=== PATIENT | male | born 1950 | race Caucasian/White ===

== ENCOUNTER → 2017-05-02 | Outpatient (CLI) | payer MEDICARE ==
--- NOTE | 2017-05-02 07:55 | US ---
EXAMINATION TYPE: US liver DATE OF EXAM: 05/02/2017 COMPARISON: NONE CLINICAL HISTORY: R74.8 abnormal levels Of Serum Enzymes. Elevated liver enzymes. No symptoms per pat ient EXAM MEASUREMENTS: Liver Length: 20.9 cm Gallbladder Wall: 0.2 cm CBD: 0.7 cm Right Kidney: 11.4 x 6.4 x 6.4 cm Pancreas: Obscured by bowel gas Liver: Enlarged, coarse echotexture. Attenuating. Hypoechoic area visualized adjacent to gallbladder measuring 0.8 x 0.8 x 0.8 cm Gallbladder: No shadowing stones or sludge seen Evidence for sonographic Matthews's sign: No CBD: Measuring upper limits of normal, distal portion obscured by bowel gas Right Kidney: No hydronephrosis or masses seen Pancreas is suboptimally evaluated on images saved due to shadowing from overlying bowel gas. Visuali zed liver is heterogeneously hyperechoic. Technologist eduardo vague subcentimeter hypoechoic area near gallbladder fossa. I suspect diffuse fatty infiltration with focal fatty sparing. IMPRESSION: Heterogeneous hyperechoic appearance of liver favors diffuse fatty infiltration. Underlyi ng hepatocellular disease is not excluded. Imaging guided random biopsy for tissue analysis can be pe rformed if desired.
== END | disposition home or self-care (01) ==
LOC: RADUSWWP 07:16
PROVIDERS: ATTEND Family Medicine
DX: R74.8 Abnormal levels of other serum enzymes (principal)
CPT/HCPCS: 76705

== ENCOUNTER → 2017-07-26 | Outpatient (CLI) | payer MEDICARE ==
--- NOTE | 2017-07-27 12:56 | P.STRESS ---
- Stress Test Note Stress Test Results/Findings: Exam Performed: stress echo exercise Exam Date: 07/26/17 Reason for Exam: CHEST PAIN Height: 6 ft 1 in Weight: 113.398 kg Protocol: JOHN Stage: 2 Duration of Exercise: 5:00 Resting Heart Rate: 68 Resting Blood Pressure: 136/77 Maximum Achieved Heart Rate: 144 Maximum Achieved Blood Pressure: 206/42 85% PMHR: 132 100% PMHR: 155 METS: 6.8 Technologist Comment: Stress Test Results/Findings: This is a 67-year-old gentleman with history of hypercholesterolemia and smoking history, being evaluated for symptoms of chest pain. Stress data: Baseline EKG showed sinus rhythm with normal NH and 20, QRS duration. Blood pressure at rest is 136/77 with a pulse rate of 68. Patient walked on the John protocol for 5 minutes achieving a maximum heart rate of 144 with a blood pressure of 206/42. Patient did not experience any chest pain. Echo data: Baseline echo images show normal wall motion and thickening. Exercise echo images showed augmentation of the wall motion and thickening in all segments. Final impression: #1. Negative stress test #2. Negative stress echo.
--- NOTE | 2017-08-01 14:14 | ECHOS ---
Stress Test Results/Findings: Exam Performed: stress echo exercise Exam Date: 07/26/17 Reason for Exam: CHEST PAIN Height: 6 ft 1 in Weight: 113.398 kg Protocol: JOHN Stage: 2 Duration of Exercise: 5:00 Resting Heart Rate: 68 Resting Blood Pressure: 136/77 Maximum Achieved Heart Rate: 144 Maximum Achieved Blood Pressure: 206/42 85% PMHR: 132 100% PMHR: 155 METS: 6.8 Technologist Comment: Stress Test Results/Findings: This is a 67-year-old gentleman with history of hypercholesterolemia and smoking history, being evaluated for symptoms of chest pain. Stress data: Baseline EKG showed sinus rhythm with normal HI and 20, QRS duration. Blood pressure at rest is 136/77 with a pulse rate of 68. Patient walked on the John protocol for 5 minutes achieving a maximum heart rate of 144 with a blood pressure of 206/42. Patient did not experience any chest pain. Echo data: Baseline echo images show normal wall motion and thickening. Exercise echo images showed augmentation of the wall motion and thickening in all segments. Final impression: #1. Negative stress test #2. Negative stress echo. KENTOND
== END | disposition home or self-care (01) ==
LOC: RADNMMAIN 09:44
PROVIDERS: ATTEND Family Medicine
DX: R07.1 Chest pain on breathing (principal)
CPT/HCPCS: 93351

== ENCOUNTER → 2017-08-03 | Outpatient (CLI) | payer MEDICARE ==
--- NOTE | 2017-07-26 13:18 | P.STRESS ---
- Stress Test Note Stress Test Results/Findings: Exam Performed: Exam Date: Reason for Exam: Height: Weight: Protocol: Stage: Duration of Exercise: Resting Heart Rate: Resting Blood Pressure: Maximum Achieved Heart Rate: Maximum Achieved Blood Pressure: 85% PMHR: 100% PMHR: METS: Technologist Comment: Stress Test Results/Findings: This is a 67-year-old gentleman with history of hypercholesterolemia and smoking being evaluated for chest pains. Stress data: Baseline EKG showed sinus rhythm with normal HI interval and QRS duration. Blood pressure at rest is 136/77 with pulse rate of 68.. Patient walked on the Antolin protocol for about 5 minutes achieving a maximal to 144 with blood pressure 206/42. EKGs taken during after the x-ray did not reveal any significant changes from the baseline. Echo data: Baseline echo images show normal wall motion and thickening. Exercise echo images showed augmentation of wall motion and thickening in all segments. Final impression: #1. Negative stress test #2. Negative stress echo. #3. Patient did not express any chest pain before. #5. No arrhythmias detected.
--- NOTE | 2017-08-03 14:55 | US ---
EXAMINATION TYPE: US duplex aorta DATE OF EXAM: 08/03/2017 COMPARISON: Liver ultrasound May 02, 2017 CLINICAL HISTORY: Z13.6 Screening for cardiovascular disorder. EXAM MEASUREMENTS: Abdominal Aorta: Proximal: 1.8 x 1.5 cm Mid: 2.2 x 1.4 cm Distal: 1.9 x 1.4 cm Bifurcation: 1.3 cm 1.4 cm Difficult exam due to large amounts of bowel gas. Suboptimal study without greater than 3 cm aneurysmal change seen. Adjacent heterogeneous hyperechoic appearance of liver is redemonstrated. IMPRESSION: Suboptimal study without convincing ultrasound evidence for abdominal aortic aneurysm.
== END | disposition home or self-care (01) ==
LOC: RADUSWWP 14:07
PROVIDERS: ATTEND Family Medicine
DX: Z13.6 Encounter for screening for cardiovascular disorders (principal)
CPT/HCPCS: 93979

== ENCOUNTER 2023-10-19 10:07 | Day surgery (SDC) | payer MEDICARE ==
[2023-10-14 10:48] VITALS: BMI 34.5
[~2023-10-19 10:07] MED LIST: HYDROmorphone 0.5 MG/0.5 ML SYRINGE IVP PRN; LIDOCAINE 1% (10MG/ML) FOR IV START INTRADERMA PRN; MIDAZOLAM 2 MG/2 ML VIAL IV PRN; fentaNYL (PF) 50 MCG/ML 2 ML AMP IVP PRN
[2023-10-19] MEDS: IV FLUID CONTINUATION 1,000 ML IV ONE (10:23)
[2023-10-19 10:33] VITALS: RESP 18
[2023-10-19] MEDS: OXYMETAZOLINE 0.05% NASL SPRAY 1 SPRAY BOTTLE EA NOSTRIL PRN (10:38)
[2023-10-19] MEDS: DEXAMETHASONE SOD PHOSPHATE 4 MG/ML 1 ML VIAL IV ONE (10:49)
[2023-10-19] MEDS: ONDANSETRON 4 MG/2 ML VIAL IVP ONE (10:56)
[2023-10-19] MEDS: FAMOTIDINE 20 MG/2 ML VIAL IV PRN (10:57)
[2023-10-19] MEDS: LACTATED RINGERS 1,000 ML IV SCH (11:03)
[2023-10-19 11:09] LABS: Glucose,Whole Blood 107 mg/dL (70-110)
[2023-10-19] MEDS ORDERED: PROPOFOL 10 MG/ML 20 ML VIAL IV ONE (11:09)
[2023-10-19] MEDS ORDERED: SUCCINYLCHOLINE CHLORIDE 200 MG/10 ML VIAL IV ONE (11:09)
[2023-10-19] MEDS ORDERED: fentaNYL (PF) 50 MCG/ML 2 ML AMP ONE (11:09)
[2023-10-19] MEDS: ceFAZolin 3 GM in SODIUM CHLORIDE 0.9% 100 ML IVPB PRN (11:09)
[2023-10-19] MEDS ORDERED: ROCURONIUM 10 MG/ML (5 ML VIAL) IV ONE (11:09)
[2023-10-19] MEDS ORDERED: PHENYLEPHRINE 10 MG/ML VIAL ONE (11:09)
[2023-10-19] MEDS ORDERED: MIDAZOLAM 2 MG/2 ML VIAL ONE (11:09)
[2023-10-19] MEDS ORDERED: LIDOCAINE 1% INJ 10MG/ML (20 ML MDV) ONE (11:09)
[2023-10-19] MEDS: LIDOCAINE 1%-EPI 1:100,000 20 ML VIAL SUBMUCOSAL ONE ×3 (11:24→11:28)
[2023-10-19] MEDS: BACITRACIN ZINC 500 UNIT/GM OINT 28.4 GM TUBE TOPICAL ONE ×3 (11:25→12:02)
--- NOTE | 2023-10-19 12:13 | P.OP ---
Date of Procedure: 10/19/23 Preoperative Diagnosis: deviated nasal septum Inferior turbinate hypertrophy Right nasal polyp Postoperative Diagnosis: same Procedure(s) Performed: septoplasty Outfracture and submucous resection of the inferior turbinates Right-sided endoscopic sinus surgery with right nasal endoscopy and polypectomy Anesthesia: ESTHELA Surgeon: Constantino Lomeli Estimated Blood Loss (ml): 5 Pathology: none sent (nasal septal bone and cartilage and right nasal polyp) Condition: stable Disposition: PACU Indications for Procedure: this 73-year-old white male with chronic nasal airway obstruction and congestion especially on the right with CT evidence of deviated septum and sinuses were clear but has nasal polyp endoscopically Operative Findings: septum deviated to the right-severe cartilage and bony approximately 90% obstruction but actually touching the inferior turbinate in some areas with inferior turbinate hypertrophy bilateral and right nasal polyps- small right middle meatus Description of Procedure: The patient was brought into the operative suite and placed in a supine position. The patient underwent induction of general anesthesia with oral endotracheal intubation without difficulty. The patient was prepped and draped in the usual aseptic fashion with the orbits in the operating field for monitoring to the case and the computed tomography scan was on the computer screen for review throughout the case. 1% lidocaine with 1 :100,000 epinephrine was infused submucosally into both sides of the nasal septum as well as the lateral nasal wall and anterior tips of the middle turbinates. While this was taking vasoconstrictive effect the inferior turbinates were infractured with Pope elevator and partial submucous resection of the inferior turbinates was performed with a portion of the submucosal soft tissue and the inferior turbinate bone removed with Coblation device. The inferior turbinates were then outfractured with the Pope elevator. A left hemitransfixion incision was then made with the mucoperichondrial and mucoperiosteal flap on the left elevated. The bony cartilaginous junction was disarticulated and the mucoperiosteal flap on the right was elevated. Bony nasal septal deformities were removed with Donell forceps and an inferior cartilaginous strip was removed leaving a full 1.5 cm caudal strut. Checking intranasally this corrected the nasoseptal deformities and the hemitransfixion incision was closed with a running 4-0 chromic suture. Full 0 endoscopic examination is performed bilaterally. proceeding on the right there were small polyps in the middle meatus emanating from the right m iddle turbinate which were debrided with the microdebrider after the middle turbinate was medialized with a Windom elevator. Excellent hemostasis was noted no nasal packing or dressings were required-there was good hemostasis. Bilateral Holt airway splints coated with bacitracin ointment were placed and sutured transseptally with a 4-0 nylon suture. The patient was suctioned in oral gastric fashion and was allowed to emerge from general anesthesia having tolerated procedure well and was extubated in the operating suite and transferred to the postoperative recovery area in satisfactory condition.
[2023-10-19 12:21] VITALS: TEMP 97.5
[2023-10-19 13:29] VITALS: BP 157/76; PULSE 59
== END 2023-10-19 13:56 | disposition home or self-care (01) ==
LOC: OR 10:07
PROVIDERS: ATTEND Otolaryngology
DX: J34.3 Hypertrophy of nasal turbinates (principal); J34.2 Deviated nasal septum; J33.9 Nasal polyp, unspecified; I10 Essential (primary) hypertension; E78.5 Hyperlipidemia, unspecified; G47.33 Obstructive sleep apnea (adult) (pediatric); M19.90 Unspecified osteoarthritis, unspecified site; F12.90 Cannabis use, unspecified, uncomplicated; Z87.891 Personal history of nicotine dependence; Z79.899 Other long term (current) drug therapy
CPT/HCPCS: 88300; 88305